=== PATIENT | male | born 1960 | race Caucasian/White ===

== ENCOUNTER → 2020-02-07 | Outpatient (CLI) | payer BC ==
[~2020-02-07] MED LIST: OMNIPAQUE 350 MG/ML, 100ML BOTTLE ONE
== END | disposition home or self-care (01) ==
LOC: CFH 13:06
PROVIDERS: ATTEND Internal Medicine Infectious Disease
DX: R10.9 Unspecified abdominal pain (principal); M51.36 Other intervertebral disc degeneration, lumbar region; L02.211 Cutaneous abscess of abdominal wall; Z90.49 Acquired absence of other specified parts of digestive tract
CPT/HCPCS: 74177; Q9967